=== PATIENT | male | born 1995 | race Caucasian/White ===

== ENCOUNTER 2017-12-27 01:04 | Emergency (ER) | payer MEDICAID, OTHER ==
[2017-12-27] MEDS: IBUPROFEN 600 MG TAB PO (01:49)
[2017-12-27] MEDS: CYCLOBENZAPRINE 10 MG TAB PO (01:49)
[2017-12-27] MEDS: HYDROCODONE/APAP (5/325) TAB PO (01:49)
== END 2017-12-27 02:25 | disposition home or self-care (01) ==
LOC: FTE 01:04
DX: S80.01XA Contusion of right knee, initial encounter (principal); S16.1XXA Strain of muscle, fascia and tendon at neck level, initial encounter; F17.210 Nicotine dependence, cigarettes, uncomplicated; V49.50XA Passenger injured in collision with unspecified motor vehicles in traffic accident, initial encounter
CPT/HCPCS: 99284; Z7502